=== PATIENT | male | born 1970 | race Two or more races ===

== ENCOUNTER 2016-06-28 19:28 | Emergency (ER) | payer MEDICAID ==
[~2016-06-28] VITALS: Ht 165.1 cm; Wt 81.6 kg
[~2016-06-28 19:28] MED LIST: ASPIR 8181 MG ORAL; ASPIRIN EC81 MG ORAL; ATORVASTATIN CA20 MG ORAL; ATORVASTATIN CA40 MG ORAL; BENAZEPRIL HCL40 MG ORAL; BIAXIN500 MG ORAL; CIPRO500 MG PO; CYCLOBENZAPRINE10 MG ORAL; DOCUSATE SODIU100 MG ORAL; DOXAZOSIN MESYLA4 MG ORAL; DSS100 MG ORAL; FLOMAX0.4 MG ORAL; IBUPROFEN800 M1 PO; KEFLEX500 MG ORAL; LEXAPRO20 MG ORAL; LIPITOR20 MG ORAL; LORATADINE10 M1 ORAL; NORCO 5-325 TA1 EACH ORAL; NORCO1 EA ORAL; OMEPRAZOLE20 M2 ORAL; PEPCID40 MG PO; PROTONIX40 MG ORAL; TAMSULOSIN HCL0.4 MG ORAL; TRAMADOL HCL50 MG ORAL; ULTRAM50 MG ORAL; ZANTAC150 MG ORAL; ZOFRAN4 MG ORAL
--- NOTE | 2016-06-28 21:00 | Emergency Room Report ---
History of Present Illness General Chief Complaint: Upper Extremity Injury Source: Patient (Raisa Pierre) Present Illness HPI 46 YO Male presents emergency department complaining of left shoulder pain, left elbow pain, left wrist pain, upper back pain status post mechanical slip and fall off of a 4 foot ladder. Patient denies hitting his head or loss of consciousness. Patient states that he suffered a stroke and has residual left- sided weakness of the upper extremity. Patient states pain is 8/10 in severity. Patient denies difficulty breathing reports pain is markedly exacerbated upon breathing and moderately exacerbated upon movement of the affected extremities.Denies numbness tingling or loss of sensation or gross motor movements of the extremities, incontinence of bowel or bladder. Denies CP , Palpitations, LOC, AMS, dizziness, Changes in Vision, Sensation, paresthesias , or a sudden severe headache. (Raisa Pierre) Allergies: Coded Allergies: No Known Allergies (Unverified , 10/18/12) Patient History Past Medical History: see triage record Past Surgical History: none Pertinent Family History: none Immunizations: UTD Reviewed Nursing Documentation: PMH: Agreed, PSxH: Agreed (Raisa Pierre) Nursing Documentation-PMH Past Medical History: No History, Except For Hx Cardiac Problems: Yes - high cholesterol Hx Hypertension: Yes Hx Cancer: No Hx Gastrointestinal Problems: Yes - BPH Hx Neurological Problems: Yes Hx Cerebrovascular Accident: Yes - LEFT SIDE WEAK FROM CVA (Raisa Pierre) Review of Systems All Other Systems: negative except mentioned in HPI (Raisa Pierre) Physical Exam Vital Signs Date Time Temp Pulse Resp B/P Pulse Ox O2 Delivery O2 Flow Rate FiO2 06/28/16 20:02 98.2 80 16 146/85 99 Room Air Sp02 EP Interpretation: reviewed, normal General Appearance: no apparent distress, alert, GCS 15, non-toxic Head: normocephalic, atraumatic Eyes: bilateral eye PERRL, bilateral eye normal inspection ENT: hearing grossly normal, normal pharynx, no angioedema, normal voice Neck: full range of motion, no meningismus, no bony tend, supple/symm/no masses Respiratory: chest non-tender, lungs clear, normal breath sounds, speaking full sentences Cardiovascular #1: regular rate, rhythm, no edema Cardiovascular #2: 2+ radial (R), 2+ radial (L) Gastrointestinal: non tender, soft, no guarding, no rebound, other - no bruising noted, no abdominal TTP Rectal: deferred Genitourinary: normal inspection, no CVA tenderness Musculoskeletal: back normal, gait/station normal, normal range of motion, no calf tenderness, tender - TTP to left shoulder, left lateral elbow, lateral left wrist, and T-Spine. Pt. also has left anterior rib ttp, no obvious deformities noted. Pt. has weakness in the left UE secondary to stroke in the past. no clicking noted in the shoulder, pt. has FROM with pain of all affected areas. NO midline, neck or L-spine pain. no bruising noted. Neurologic: alert, oriented x3, responsive, motor strength/tone normal, sensory intact, speech normal, motor weakness - left UE weakness-residual from previous stroke. Psychiatric: judgement/insight normal, memory normal, mood/affect normal, no suicidal/homicidal ideation Skin: normal color, no rash, warm/dry, well hydrated Lymphatic: no adenopathy (Raisa Pierre P.ADarrel) Medical Decision Making PA Attestation Dr. Lemus is my supervising Physician whom patient management has been discussed with. (Raisa Pierre P.A.) Diagnostic Impression: Primary Impression: Contusion, multiple sites Additional Impression: Fall from ladder Qualified Codes: W11.XXXA - Fall on and from ladder, initial encounter ER Course 46 YO Male presents emergency department complaining of left shoulder pain, left elbow pain, left wrist pain, upper back pain status post mechanical slip and fall off of a 4 foot ladder. Patient denies hitting his head or loss of consciousness Ddx considered but are not limited to Fracture, dislocation, contusion, Sprain/ Strain/Spasm, Epidural abscess, Neoplastic mets. Vital signs: are WNL, pt. is afebrile H&PE are most consistent with multiple contusions will r/o fractures with imaging ORDERS: - X-ray Left shoulder 3 views - negative for fx, Dislocation, or significant soft tissue injury, per preliminary read in ED by Dr. Burkett - X-ray Left elbow 3 views - negative for fx, Dislocation, or significant soft tissue injury, per preliminary read in ED by D Dr. Burkett - X-ray Left wrist 2 views - negative for fx, Dislocation, or significant soft tissue injury, per preliminary read in ED by Dr. Burkett - X-ray T-spine 2 views - negative for fx, Dislocation, or significant soft tissue injury, per preliminary read in ED by Dr. Burkett - CXR - negative for fx, Dislocation, or significant soft tissue injury,No consolidation, effusion, pneumothorax or acute cardiopulmonary findings per preliminary read in ED by Dr. Burkett ED INTERVENTIONS: - 1000mg tylenol PO -- Left arm Sling applied by crime lab technician. Pt. remains neurovascularly intact. DISCHARGE: At this time pt. is stable for d/c to home. Will provide printed patient care instructions, and any necessary prescriptions. Care plan and follow up instructions have been discussed with the patient prior to discharge. (Raisa Pierre) ER Course I agree with PA HPI and PE, as well as their assessment/plan. I also concur with PA review of imaging and rhythm strip without additional interpretation. (URIEL LEMUS M.D.) Last Vital Signs Date Time Temp Pulse Resp B/P Pulse Ox O2 Delivery O2 Flow Rate FiO2 06/28/16 20:02 98.2 80 16 146/85 99 Room Air (Raisa Pierre) Disposition: HOME, SELF-CARE Condition: Stable Scripts Ibuprofen* (MOTRIN*) 600 Mg Tablet 600 MG ORAL THREE TIMES A DAY, #30 TAB 0 Refills Prov: Raisa Pierre 06/28/16 Acetaminophen With Codeine (T#3) (TYLENOL #3 TAB*) Y Tab 1 TAB ORAL Q6H Y for For Pain, #16 TAB Prov: Raisa Pierre 06/28/16 Patient Instructions: CONTUSION, Upper Extremity Additional Instructions: Take medications as directed. Follow up with PCP in 3-5 days Return sooner to ED if new symptoms occur, or current symptoms become worse. Do not drink alcohol, drive, or operate heavy machinery while taking [ ] as this may cause drowsiness. Raisa Pierre Jun 28, 2016 21:00 URIEL LEMUS M.D. Jun 29, 2016 19:38
[2016-06-28] MEDS: Acetaminophen 500mg (ES) tab ORAL ONE (22:17)
[2016-06-28] MEDS ORDERED: ACETAMINOPHEN-1 EAC1 ORAL (22:40)
[2016-06-28] MEDS ORDERED: IBUPROFEN600 MG ORAL (22:40)
[2016-06-28 22:47] VITALS: BP 177/93
--- NOTE | 2016-06-29 11:20 | Diagnostic Imaging Report ---
Indications: PAIN Technique: 3 views of the thoracic spine Comparison: None Findings: Bony alignment is normal. Vertebral heights are preserved. Disc spaces are preserved. Pedicles are intact. No gross paraspinous mass Impression: Negative
--- NOTE | 2016-06-29 11:22 | Diagnostic Imaging Report ---
Clinical Indication:PAIN Technique: 2 views of the left wrist Comparison: None Findings: Exam is limited as only 2 views were obtained. There is an ununited ulnar styloid. Uncertain as whether developmental or posttraumatic. There is very slight ulnar minus variant. No gross acute fractures. No dislocations. Impression: Very limited exam. No gross acute bony trauma
--- NOTE | 2016-06-29 11:22 | Diagnostic Imaging Report ---
Indication: PAIN Technique: One view of the chest Comparison: none Findings: There is very mild generalized interstitial prominence. Heart size is upper limits normal. No focal airspace consolidation. Pleural space are clear Impression: Mild interstitial prominence, nonspecific, acuity indeterminate. Correlate with clinical findings No acute process otherwise
--- NOTE | 2016-07-11 14:10 | Diagnostic Imaging Report ---
Indication: PAIN Technique: 3 views of the left shoulder Comparison: none Findings: No acute fractures. No dislocations. The joint spaces are preserved Impression:Negative
--- NOTE | 2016-07-11 14:10 | Diagnostic Imaging Report ---
Indications:PAIN Technique: 2 views of the left elbow Comparison: None Findings:Exam is limited due to use of only 2 views. No acute fractures. No dislocations. No effusion. Joint spaces are preserved. Impression:Very limited. No gross acute pathology
== END 2016-06-28 22:50 | disposition home or self-care (01) ==
LOC: EMR 20:55
DX: S40.012A Contusion of left shoulder, initial encounter (principal); W11.XXXA Fall on and from ladder, initial encounter; I69.954 Hemiplegia and hemiparesis following unspecified cerebrovascular disease affecting left non-dominant side; Y92.9 Unspecified place or not applicable; I10 Essential (primary) hypertension
CPT/HCPCS: 71010; 72070; 99284

== ENCOUNTER 2016-10-22 05:33 | Emergency (ER) | payer MEDICAID ==
[~2016-10-22] VITALS: Ht 167.6 cm; Wt 81.6 kg
[~2016-10-22 05:33] MED LIST changes: +ACETAMINOPHEN-1 EAC1 ORAL; +IBUPROFEN600 MG ORAL
[2016-10-22] MEDS ORDERED: ANTI-ITCH28 G1 TP (05:49)
[2016-10-22] MEDS ORDERED: COLACE100 MG ORAL (05:49)
[2016-10-22 06:00] VITALS: BP 125/82
--- NOTE | 2016-10-22 09:00 | Emergency Room Report ---
History of Present Illness General Chief Complaint: Skin Rash/Abscess Source: Patient Present Illness HPI Patient's 46-year-old male presented after increased the pain to his rectal area. Patient stated he had several days of increased lesion to his anal area. Patient reported having prior history of CVA. I he denied any black or bloody stools. He had not been taking any stool softeners. Patient denied prior history of liver disease. He denied any fever Allergies: Coded Allergies: No Known Allergies (Unverified , 10/18/12) Patient History Past Medical History: see triage record, CVA/TIA Reviewed Nursing Documentation: PMH: Agreed, PSxH: Agreed Nursing Documentation-PMH Hx Cardiac Problems: Yes - high cholesterol Hx Hypertension: Yes Hx Cancer: No Hx Gastrointestinal Problems: Yes - BPH Hx Neurological Problems: Yes Hx Cerebrovascular Accident: Yes - LEFT SIDE WEAK FROM CVA Review of Systems All Other Systems: negative except mentioned in HPI Physical Exam Vital Signs Date Time Temp Pulse Resp B/P Pulse Ox O2 Delivery O2 Flow Rate FiO2 10/22/16 05:35 97.9 77 16 139/87 94 Room Air General Appearance: well appearing, no apparent distress, alert, GCS 15, non- toxic Head: normocephalic, atraumatic ENT: hearing grossly normal, normal voice Neck: full range of motion, supple Respiratory: no respiratory distress, speaking full sentences Rectal: hemorrhoids - non thrombosed Musculoskeletal: no calf tenderness Neurologic: abnormal gait, motor weakness - left upper extremity weakness, flexion contracture Psychiatric: mood/affect normal Skin: no rash Medical Decision Making Diagnostic Impression: Primary Impression: Hemorrhoids ER Course Patient presented for anal lesion. Differential diagnosis included hemorrhoid, abscess, tumor, among others. Patient's benign exam and does not appear to require any further imaging or laboratory testing at this time. The patient was advised care for hemorrhoid. He was given prescription of her stool softeners as well as for hydrocortisone cream.The patient is advised to follow up with primary care doctor in 1-2 days. Patient is advised to return if any worsening condition or if any changes in status that are concerning. This medical record is generated with [employer] roofing sales representative software. There may be some roofing sales representative discrepancies related to use of this software Last Vital Signs Date Time Temp Pulse Resp B/P Pulse Ox O2 Delivery O2 Flow Rate FiO2 10/22/16 06:00 98.3 75 16 125/82 100 Room Air Status: improved Disposition: HOME, SELF-CARE Condition: Stable Scripts Hydrocortisone 2% Cream (ANTI-ITCH 2% CREAM) Y Cr 28 GM TP TWICE A DAY, #15 GM Prov: Aniceto Evans 10/22/16 Docusate Sodium* (COLACE*) 100 Mg Capsule 100 MG ORAL TWICE A DAY, #30 CAP Prov: Aniceto Evans 10/22/16 [facility]errals: [facility]ERR[facility] (PCP) Patient Instructions: Hemorrhoids, [id number] Aniceto Evans Oct 22, 2016 09:00
== END 2016-10-22 06:00 | disposition home or self-care (01) ==
LOC: EMR 05:49
DX: K64.9 Unspecified hemorrhoids (principal); Z86.73 Personal history of transient ischemic attack (TIA), and cerebral infarction without residual deficits; I10 Essential (primary) hypertension
CPT/HCPCS: 99284

== ENCOUNTER 2016-11-26 00:29 | Emergency (ER) | payer SELFPAY ==
[~2016-11-26] VITALS: Ht 165.1 cm; Wt 72.6 kg
[2016-11-26] VITALS (7 sets, daily range): BP systolic 126–172; BP diastolic 92–101
[~2016-11-26 00:29] MED LIST changes: +ANTI-ITCH28 G1 TP; +COLACE100 MG ORAL
[2016-11-26] MEDS ORDERED: FLUOXETINE HCL20 MG ORAL (00:47)
[2016-11-26 01:12] LABS: EOSINOPHILS % (AUTO) 1.1 % (0.0-3.0); LYMPHOCYTES % (AUTO) 37.1 % (20.0-45.0); MEAN CORPUSCULAR HEMOGLOBIN 31.1 PG (27.0-31.0); MEAN CORPUSCULAR HGB CONC 34.5 G/DL (32.0-36.0); MEAN CORPUSCULAR VOLUME 90 FL (80-99); MEAN PLATELET VOLUME 6.1 FL (6.5-10.1); MONOCYTES % (AUTO) 8.3 % (1.0-10.0); NEUTROPHILS % (AUTO) 52.6 % (45.0-75.0); PLATELET COUNT 235 K/UL (150-450); RED BLOOD COUNT 5.73 M/UL (4.70-6.10); RED CELL DISTRIBUTION WIDTH 10.9 % (11.6-14.8); WHITE BLOOD COUNT 9.8 K/UL (4.8-10.8)
[2016-11-26] MEDS ORDERED: Thiamine HCl 100 MG in D5W 55 ML IVPB SCH (01:15)
[2016-11-26 01:21] LABS: APPEARANCE,URINE CLEAR; KETONES,URINE NEGATIVE (NEGATIVE); LEUKOCYTE ESTERASE ,URINE 1+ (NEGATIVE); NITRITE,URINE NEGATIVE (NEGATIVE); PH,URINE 6 (4.5-8.0); PROTEIN,URINE 3+ (NEGATIVE); UROBILINOGEN,URINE 4 MG/DL (0.0-1.0)
[2016-11-26 01:25] LABS: PROTHROMBIN TIME 10.8 SEC (9.30-11.50)
[2016-11-26] MEDS ORDERED: Thiamine HCl 100mg/ml Inj ONE (01:31)
[2016-11-26 01:36] LABS: HYALINE CASTS, URINE 0-2 /LPF; SQUAMOUS EPITHELIAL CELL,UR FEW /LPF (NONE/OCC); WBC,URINE 0-2 /HPF (0 - 0)
[2016-11-26 01:44] LABS: ALANINE AMINOTRANSFERASE 45 U/L (3-41); ALBUMIN/GLOBULIN RATIO 1.3 (1.0-2.7); ANION GAP 21 (5-15); ASPARTATE AMINO TRANSFERASE 43 U/L (5-40); CALCIUM 8.9 mg/dL (8.6-10.2); CARBON DIOXIDE 23 mEQ/L (20-30); CHLORIDE 93 mEQ/L (98-107); GLOMERULAR FILTRATION RATE > 60 mL/min (>60); HEMOLYSIS 9; LIPASE 38 U/L (< 60); POTASSIUM 3.4 mEQ/L (3.4-4.9); SODIUM 137 mEQ/L (135-145); TOTAL PROTEIN 7.8 g/dL (6.6-8.7)
[2016-11-26 01:47] LABS: TROPONIN I < 0.30 ng/mL (<=0.30)
[2016-11-26] MEDS ORDERED: OMEPRAZOLE20 M2 ORAL (02:38)
[2016-11-26] MEDS ORDERED: ZOFRAN4 MG ORAL (02:38)
[2016-11-26] MEDS ORDERED: Pantoprazole Inj IV ONE (10:00)
--- NOTE | 2016-12-01 06:53 | Emergency Room Report ---
History of Present Illness General Chief Complaint: Abdominal Pain Source: Family Member Present Illness HPI Patient is a 46-year-old male who presented after increased epigastric abdominal pain. The patient had reportedly been drinking heavily. He denied hematemesis. He reportedly had been having some episodes of vomiting. He had prior abdominal surgeries. Patient had prior history of CVA. The patient had not been having any bloody stools. A gradual onset of symptoms. Allergies: Coded Allergies: No Known Allergies (Unverified , 10/18/12) Patient History Past Medical History: see triage record Reviewed Nursing Documentation: PMH: Agreed, PSxH: Agreed Nursing Documentation-PMH Hx Cardiac Problems: Yes - high cholesterol Hx Hypertension: Yes Hx Cancer: No Hx Gastrointestinal Problems: Yes - BPH Hx Neurological Problems: Yes Hx Cerebrovascular Accident: Yes - LEFT SIDE WEAKNESS Review of Systems All Other Systems: negative except mentioned in HPI Physical Exam Vital Signs Date Time Temp Pulse Resp B/P Pulse Ox O2 Delivery O2 Flow Rate FiO2 11/26/16 00:39 99.9 118 18 162/101 94 Room Air Sp02 EP Interpretation: reviewed, normal General Appearance: normal inspection, no apparent distress, alert, GCS 15 Head: atraumatic ENT: normal ENT inspection, hearing grossly normal, normal voice Neck: normal inspection, full range of motion, supple, no bony tend Respiratory: normal inspection, lungs clear, normal breath sounds, no respiratory distress, no retraction, no wheezing Cardiovascular #1: regular rate, rhythm, no edema Gastrointestinal: normal inspection, normal bowel sounds, non tender, soft, no guarding, no hernia Genitourinary: no CVA tenderness Musculoskeletal: normal inspection, back normal, normal range of motion Neurologic: normal inspection, alert, responsive, refrigeration installer III-XII nml as tested, speech normal, motor weakness - left side weakness Psychiatric: normal inspection, judgement/insight normal, mood/affect normal Skin: normal inspection, normal color, no rash Medical Decision Making Diagnostic Impression: Primary Impression: Abdominal pain Additional Impression: Alcohol intoxication ER Course Patient presented for abdominal pain. Differential diagnoses included ischemic bowel, appendicitis, perforated viscus, abdominal aortic aneurysm, inferior myocardial infarction, viral gastroenteritis Because of complexity of patient's case laboratory testing and imaging studies were ordered. The patient given IV fluids. He started on IV acid blockers. Patient was noted to have a blood alcohol which markedly elevated. 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 Patient was given IV antiemetics with improvement in his vomiting.The patient is advised to follow up with primary care doctor in 1-2 days. Patient is advised to return if any worsening condition or if any changes in status that are concerning. Last Vital Signs Date Time Temp Pulse Resp B/P Pulse Ox O2 Delivery O2 Flow Rate FiO2 11/26/16 11:12 98.4 96 30 171/100 99 Room Air Status: improved Disposition: HOME, SELF-CARE Condition: Stable Scripts Ondansetron (Zofran) 4 Mg Tab 4 MG ORAL Q6H Y for Nausea & Vomiting, #10 TAB Prov: Aniceto Evans 11/26/16 Omeprazole (OMEPRAZOLE) 20 Mg Capsule.dr 20 MG ORAL DAILY, #28 CAP Prov: Aniceto Evans 11/26/16 Referrals: NOT CHOSEN [facility],REFERRING (PCP) Patient Instructions: Alcohol Intoxication, Abdominal Pain, Adult Aniceto Evans Dec 01, 2016 06:53
== END 2016-11-26 11:13 | disposition home or self-care (01) ==
LOC: EMR 01:15
DX: R10.13 Epigastric pain (principal); F10.129 Alcohol abuse with intoxication, unspecified; E78.00 Pure hypercholesterolemia, unspecified; I10 Essential (primary) hypertension; N40.0 Benign prostatic hyperplasia without lower urinary tract symptoms; I69.854 Hemiplegia and hemiparesis following other cerebrovascular disease affecting left non-dominant side
CPT/HCPCS: 36415; 80053; 81003; 83690; 84484; 85025; 85610; 85730; 96360; 96372; 96374; 96375; 99284; C9113; G0480; J2405; J2550; 80329